=== PATIENT | male | born 2000 | race African-American/Black ===

== ENCOUNTER 2023-01-05 10:11 | Emergency (ER) | payer BC, SELFPAY ==
--- NOTE | ~2023-01-05 | XR_ITS ---
XR foot RT 2V 01/05/2023 11:57 INDICATION: Right foot pain after laceration PROCEDURE: 4 views right foot COMPARISON: No prior studies for comparison. FINDINGS: Fracture, dislocation or subluxation is not identified. Lisfranc joint intact. The soft tis sues appear within normal limits. No foreign bodies are identified. IMPRESSION: 1: NO ACUTE BONE OR JOINT ABNORMALITY IDENTIFIED. Reviewed, dictated and finalized at location B.
[2023-01-05 11:08] VITALS: BP 133/64; RESP 17; TEMP 36.8; O2SAT 100
[2023-01-05] MEDS: TETANUS,DIPHTHERIA,AC PERTUSSIS ADULT (0.5 ML) BOOSTRIX IM (11:42)
--- NOTE | 2023-01-05 12:00 | ED.GENADULT ---
HPI - General Adult General Chief complaint: Wound/Laceration Stated complaint: foot laceration Time Seen by Provider: 01/05/23 11:35 History of Present Illness HPI narrative: This is a 22-year-old male who presents to the ED with chief complaint of right foot laceration. Patient reports he was moving furniture this morning and his foot got caught on a piece of broken glass. Reports a wound to the lateral right foot. Reports some pain in the area. He is unsure of his last tetanus shot. Denies any numbness or weakness. Denies any further site of injury or or pain. Related Data Allergies Allergy/AdvReac Type Severity Reaction Status Date / Time No Known Allergies Allergy Verified 01/05/23 11:40 Review of Systems Review of Systems: CONSTITUTIONAL: Denies fever, chills, or sweats. SKIN: See HPI MUSCULOSKELETAL: Denies back pain, joint pain, or myalgia. NEUROLOGIC: Denies headache, numbness, dizziness, or weakness. PSYCHIATRIC: Denies anxiety or depression. Exam Narrative: GENERAL: Well-appearing, well-nourished, and in no acute distress. EXTREMITIES: Normal range of motion. No edema. SKIN: There is a 1.5 cm laceration to the proximal aspect of the right lateral foot. Bleeding is controlled. No obvious foreign body. Minimal tenderness. NV intact distally. NEURO: Alert and oriented x3. No focal deficits. PSYCH: Normal mood and affect. Course Vital Signs Vital signs: Vital Signs Temperature 98.3 F 01/05/23 11:08 Respiratory Rate 17 01/05/23 11:08 Blood Pressure 133/64 01/05/23 11:08 Pulse Oximetry 100 01/05/23 11:08 Oxygen Delivery Room Air 01/05/23 11:08 Temperature 98.3 F 01/05/23 11:08 Pulse Rate 81 01/05/23 12:47 Respiratory Rate 16 01/05/23 12:47 Blood Pressure 133/64 01/05/23 11:08 Pulse Oximetry 98 01/05/23 12:47 Oxygen Delivery Room Air 01/05/23 11:08 Procedures Laceration Laceration 1: Date: 01/05/23 Time: 12:40 Site: lower extremity (R foot, lateral) Side (If applicable): right Size (cm): 2 Description: linear and irregular Depth: simple, single layer Local Anesthetic: lidocaine 1% Amount of anesthesia used (mL): 3 Pre-repair: wound explored, irrigated extensively and deep structures intact ====== Skin Level ====== Skin layer closed with: nylon Size (cm): 5-0 Number of sutures: 4 Technique: simple, interrupted ====== Subcutaneous Layer ====== ====== Muscle Layer ====== ====== Tendon Layer ====== Dressing: Simple dressing with gauze and Coban. Medical Decision Making MDM Narrative Medical decision making narrative: This is a 22-year-old male presents the ED with chief complaint of a right lateral foot laceration occurring just prior to arrival. Laceration is 1.5 cm. The wound was well cleaned and sutured here in the department. X-rays negative. He is stable for discharge. Return precautions given and supportive measures discussed. Wound care discussed. Patient is understanding and agreeable with the plan for discharge and follow-up with PCP in a week for suture removal. Vital Signs Vital Signs: Vital Signs Temperature 98.3 F 01/05/23 11:08 Respiratory Rate 17 01/05/23 11:08 Blood Pressure 133/64 01/05/23 11:08 Pulse Oximetry 100 01/05/23 11:08 Oxygen Delivery Room Air 01/05/23 11:08 Temperature 98.3 F 01/05/23 11:08 Pulse Rate 81 01/05/23 12:47 Respiratory Rate 16 01/05/23 12:47 Blood Pressure 133/64 01/05/23 11:08 Pulse Oximetry 98 01/05/23 12:47 Oxygen Delivery Room Air 01/05/23 11:08 Discharge Plan Discharge Clinical Impression: Foot laceration Patient Disposition: Home, Self-Care Condition: Stable Instructions: Antibiotic Form Additional Instructions: Keep wound clean and dry. Do not soak, take baths, or swim until wound is completely healed.
[2023-01-05 12:47] VITALS: PULSE 81; RESP 16; O2SAT 98
== END 2023-01-05 12:51 | disposition home or self-care (01) ==
PROVIDERS: Emergency Provider Physician Assistant
DX: S91.311A Laceration without foreign body, right foot, initial encounter (principal); Z23 Encounter for immunization; W25.XXXA Contact with sharp glass, initial encounter
CPT/HCPCS: 12001; 73620; 90471; 90715; 99283